=== PATIENT | female | born 1970 | race Caucasian/White ===

== ENCOUNTER 2024-07-21 05:23 | Day surgery (SDC) | payer OTHER ==
[2024-07-21] MEDS ORDERED: fentaNYL 100 MCG/2 ML SDV IV ONE (05:24)
[2024-07-21] MEDS ORDERED: Midazolam 1 MG/ML 2 ML SDV IV ONE (05:24)
[2024-07-21] MEDS: Dextrose 5%-0.45% NaCl 1,000 ML IV SCH (05:57)
[2024-07-21] MEDS ORDERED: fentaNYL 100 MCG/2 ML SDV ONE (06:04)
[2024-07-21] MEDS ORDERED: Midazolam 1 MG/ML 2 ML SDV ONE (06:04)
[2024-07-21] MEDS: fentaNYL 100 MCG/2 ML SDV IV ONE ×5 (06:28→06:46)
[2024-07-21] MEDS: Midazolam 1 MG/ML 2 ML SDV IV ONE ×7 (06:29→06:39)
== END 2024-07-21 08:05 | disposition home or self-care (01) ==
LOC: DL.ENDO 05:23
PROVIDERS: ATTEND Internal Medicine Gastroenterology
DX: Z12.11 Encounter for screening for malignant neoplasm of colon (principal); K63.5 Polyp of colon; E03.9 Hypothyroidism, unspecified; Z88.0 Allergy status to penicillin
CPT/HCPCS: J2250; J3010; J7799